=== PATIENT | female | born 1990 | race Caucasian/White ===

== ENCOUNTER 2019-01-13 22:26 | Emergency (ER) | payer BC, OTHER ==
[~2019-01-13] VITALS: Ht 152 cm; Wt 47.7 kg
[2019-01-13] MEDS ORDERED: HYDROcodone/APAP 5 MG/325 MG (LORTAB) TAB PO ONE (23:00)
--- NOTE | 2019-01-13 23:10 | ED Lower Extremity ---
General Chief Complaint: Lower Extremity Stated Complaint: BOWLING BALL FALL ON RT FOOT Nursing Triage Note: Pt to [facility] with c/o right foot pain after dropping a 7 lb bowling ball on foot. Pt rates pain 8/10, moderate swelling present on arrival. Pulses presesnt in bilat LE. Nursing Sepsis Screen: No Definite Risk Source: patient Exam Limitations: no limitations History of Present Illness Date Seen by Provider: Jan 13, 2019 Time Seen by Provider: 22:35 Initial Comments This 28 year old young lady presents to the ER with complaint of severe pain in the right foot after dropping an 7 or 8 pound bowling ball on it just prior to arrival. She has been unable to bear weight due to pain. Allergies and Home Medications Allergies Coded Allergies: No Known Drug Allergies (Unverified , 01/13/19) Patient Home Medication List Home Medication List Reviewed: Yes Review of Systems Constitutional: no symptoms reported EENTM: no symptoms reported Respiratory: no symptoms reported Cardiovascular: no symptoms reported : No Musculoskeletal: see HPI Skin: see HPI Past Hmzxqnk-Qukbhg-Ygzfta Hx Past Med/Social Hx: Reviewed Nursing Past Med/Soc Hx Patient Social History Alcohol Use: Denies Use Recreational Drug Use: No Smoking Status: Current Someday Smoker Type Used: Cigarettes Recent Foreign Travel: No Contact w/Someone Who Travel: No Recent Infectious Disease Expo: No Recent Hopitalizations: No Physical Abuse: No Sexual Abuse: No Mistreated: No Fear: No Seasonal Allergies Seasonal Allergies: No Past Medical History Surgeries: Yes (back ) Breast, Orthopedic Respiratory: No Cardiac: No Neurological: No Genitourinary: No Gastrointestinal: No Musculoskeletal: No Endocrine: No HEENT: No Cancer: No Psychosocial: No Blood Disorders: No Physical Exam Vital Signs Vital Signs - First Documented 01/13/19 22:36 Temp 37.1 Pulse 95 Resp 20 B/P (MAP) 128/89 (102) Pulse Ox 98 O2 Delivery Room Air Capillary Refill : Less Than 3 Seconds Height, Weight, BMI Height: '" Weight: lbs. oz. kg; 20.00 BMI Method: General Appearance: mild distress HEENT: normal ENT inspection Cardiovascular: regular rate, rhythm, no edema, no murmur Respiratory: lungs clear, normal breath sounds Ankles: right ankle non-tender, right ankle normal inspection, right ankle normal range of motion, right ankle no evidence of injury Feet: right foot other (tenderness and ecchymosis over the first and second toe and the distal foot just proximal to the toes. Sensation and capillary refill intact. 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-XII nml as tested, no motor/sensory deficits, alert, normal mood/affect, oriented x 3 Skin: normal color, warm/dry, ecchymosis Progress/Results/Core Measures Results/Orders My Orders Orders - GREGORY GARCIA MD Foot, Right, 3 View (01/13/19 22:42) Hydrocodone/Apap 5/325 Tablet (Lortab 5 (01/13/19 23:00) Crutches (01/13/19 23:08) Medications Given in ED Current Medications Medications Dose Ordered Sig/Adilene Route Start Time Stop Time Status Last Admin Dose Admin Acetaminophen/ Hydrocodone Bitart 1 tab ONCE ONCE PO 01/13/19 23:00 01/13/19 23:01 DC 01/13/19 22:51 1 TAB Vital Signs/I&O 01/13/19 01/13/19 22:36 23:50 Temp 37.1 37.1 Pulse 95 95 Resp 20 20 B/P (MAP) 128/89 (102) 128/89 (102) Pulse Ox 98 98 O2 Delivery Room Air Room Air Blood Pressure Mean: 102 POS Progress Progress Note : Progress Note Patient was given hydrocodone for pain. X-ray was unremarkable. Crutches were dispensed as patient had difficulty with weightbearing. Diagnostic Imaging Diagonstic Imaging: Xray Comments Right foot x-ray viewed by me and report reviewed. See report below: NAME: BAILEY VILLAR [facility] REC#: [id number] PT STATUS: DEP ER : 1990 PHYSICIAN: GREGORY GARCIA MD ADMIT DATE: 01/13/19/ER Draft Date of Exam:01/13/19 FOOT, RIGHT, 3 VIEW INDICATION: Pain status post injury. COMPARISON: None. FINDINGS: 3 views of the right foot demonstrate no acute fracture or dislocation. There are no focal osseous lesions. There is no soft tissue swelling. Joint spaces are well maintained. No radiopaque foreign bodies are seen. IMPRESSION: No acute fractures or dislocations of the right foot. Dictated on workstation # [id number] Dict: 01/14/19539 Trans: 01/14/1942 [id number] Interpreted by: KATHY HANSEN MD Departure Impression Primary Impression: Contusion of right foot Qualified Codes: S90.31XA - Contusion of right foot, initial encounter Disposition: 01 HOME, SELF-CARE Condition: Improved Departure-Patient Inst. Decision time for Depature: 23:09 Patient Instructions: Contusion (DC) Add. Discharge Instructions: Rest, elevation, and 20 minute intervals of icing should help reduce pain and swelling. Treat pain with ibuprofen up to 400 mg every 6 hours as needed. Add Tylenol (ac etaminophen) up to 650 mg every 6 hours as needed for additional pain relief. Gradually increase level of activity as pain allows. If you're not improving as expected over the next several days, please follow-up with your primary care provider or in the ER. Return to care if you have any further problems or complications. All discharge instructions reviewed with patient and/or family. Voiced understanding. GREGORY GARCIA MD Jan 13, 2019 23:10 POS
[2019-01-13 23:50] VITALS: BP 128/89
--- NOTE | 2019-01-14 05:42 | Diagnostic Imaging Report ---
INDICATION: Pain status post injury. COMPARISON: None. FINDINGS: 3 views of the right foot demonstrate no acute fracture or dislocation. There are no focal osseous lesions. There is no soft tissue swelling. Joint spaces are well maintained. No radiopaque foreign bodies are seen. IMPRESSION: No acute fractures or dislocations of the right foot. Dictated by: Dictated on workstation # [id number]
== END 2019-01-13 23:47 | disposition home or self-care (01) ==
LOC: ER 22:29
DX: S90.31XA Contusion of right foot, initial encounter (principal); F17.210 Nicotine dependence, cigarettes, uncomplicated; W20.8XXA Other cause of strike by thrown, projected or falling object, initial encounter
CPT/HCPCS: 73630